=== PATIENT | female | born 1970 | race Caucasian/White ===

== ENCOUNTER 2021-12-12 16:09 | Outpatient (CLI) | payer OTHER, SELFPAY | END 2021-12-12 16:10 | disposition home or self-care (01) | LOC: NFLDUCREF 12-19 09:48 | PROVIDERS: PCP Family Medicine; Visit Provider Nurse Practitioner Family | DX: R39.89 Other symptoms and signs involving the genitourinary system (principal); N39.0 Urinary tract infection, site not specified | CPT/HCPCS: 87086 ==